=== PATIENT | female | born 1985 | race Caucasian/White ===

== ENCOUNTER 2022-12-29 12:08 | Emergency (ER) | payer BC, SELFPAY ==
[2022-12-29 12:14] VITALS: BP 158/108; PULSE 66; RESP 16; TEMP 36.7; O2SAT 97; BMI 33.1
[2022-12-29 13:11] LABS: Basophils Absolute Auto 0.02 K/uL (0.00-0.30); Basophils Percent Auto 0.3 % (0.0-3.0); Eosinophils Absolute Auto 0.29 K/uL (0.00-0.50); Eosinophils Percent Auto 4.6 % (0.0-7.0); Hematocrit 44.4 % (33.0-51.0); Hemoglobin* 14.9 gm/dL (12.0-16.0); Immature Granulocytes Abs Auto 0.01 K/uL (0.00-0.30); Immature Granulocytes Pct Auto 0.2 %; Lymphocytes Absolute Auto 2.54 K/uL (0.90-2.90); Lymphocytes Percent Auto 39.9 % (20-44); Mean Corpuscular HGB Conc 34 gm/dL (32-36); Mean Corpuscular Hemoglobin 29 pg (26-34); Mean Corpuscular Volume 85 fL (80-100); Monocytes Percent Auto 6.4 % (0.0-11.0); Neutrophils Absolute Auto 3.09 K/uL (1.7-7.0); Neutrophils Percent Auto 48.6 % (42.0-72.0); Platelet Count* 356 K/uL (140-440); RDW Coefficient of Variation % 12.5 % (11.5-15.5); White Blood Count* 6.36 K/uL (4.50-11.00)
[2022-12-29 13:12] LABS: Slide Review Reflex No
--- NOTE | 2022-12-29 13:12 | ED.GENADULT ---
HPI - General Adult General Date Seen: 12/29/22 Chief complaint: Hypertension Stated complaint: high blood pressure Time Seen by Provider: 12/29/22 12:09 Source: patient Mode of arrival: ambulatory Limitations: no limitations History of Present Illness HPI narrative: Patient is a 37-year-old woman who is here because of elevated blood pressures. She says that she had had history of high blood pressure, had been on metoprolol and hydrochlorothiazide. However, she has been losing weight and made some lifestyle changes and as a result blood pressures had normalized and she was able to go off blood pressure medicines. She says that she had noted however for the past week or so her blood pressures have been higher, it sounds like she has been checking them fairly frequently, she has been feeling worried about it, and as a result has had some anxiety about her blood pressures. She does have a history of chronic migraines she says for the past 3 years since starting a job that involves a lot of sitting and screen time. She had previously been seeing a chiropractor weekly for these, but more recently had stop going to the chiropractor, and as a result has been getting more headaches. She has had headache today, and some spots in her vision, these are typical symptoms for her, but because her blood pressure was higher today than she has seen it in the past she became concerned that maybe her blood pressure was a cause of her headache and decided that she should come in. She does have hydrochlorothiazide left at home and had talked to her primary doctor about possibly restarting that, but it sounds as if her doctor head thought that probably was not necessary yet. She has not had other symptoms such as chest pain or difficulty breathing. She has not had nausea or vomiting. She denies significant caffeine or other stimulant use. She does say her sleep has been somewhat altered. She does not smoke, denies significant alcohol use, denies other drug use. Here today with her significant other. Related Data Home Medications Medication Instructions Recorded Confirmed No Known Home Medications 12/29/22 12/29/22 Allergies Allergy/AdvReac Type Severity Reaction Status Date / Time No Known Drug Allergies Allergy Verified 12/29/22 12:14 Review of Systems Status of ROS: Reports: 10 or more systems reviewed and unremarkable except as noted in History and below PFSH PFSH Social History Smoking Status: Never smoker Second hand tobacco smoke exposure: No How often do you have a drink containing alcohol: never How often do you have six or more drinks on one occasion: Never AUDIT-C Alcohol total score: 0 Non-prescribed substance use: other Non-prescribed substance use details: Gummis in the evening with THC to help wtih anxiety, does not vape THC anymore service: No Exam Narrative: Exam Narrative: Vital signs as noted above. In general, an alert, well-appearing patient. Head: Normocephalic, atraumatic. Eyes: Pupils are equal reactive. Extraocular movements are full. Conjunctivae are normal. ENT: Mucous membranes are moist. Throat is normal. Neck: Supple without lymphadenopathy. Heart: Regular rate and rhythm. No murmur or rub. Lungs: Clear bilaterally. No increased work of breathing, crackles or wheezes. Abdomen: Soft and nontender. No organomegaly. Extremities: Well perfused. No edema. No calf tenderness. Pulses intact. Neurologic: Patient is alert and oriented to person and place. Speech is fluent. Face is symmetric. Moves all extremities equally. Affect: Normal. Skin: Warm and dry. Well perfused. Const: Vital Signs, click to edit/add: Vital Signs - 24 hr 12/29/22 12:14 12/29/22 13:37 Temperature 98.0 F Pulse Rate [Left P ulse Oximeter] 66 74 Respiratory Rate 16 16 Blood Pressure [Ri ght Upper Arm] 158/108 H 164/109 H Pulse Oximetry 97 96 Oxygen Delivery Me thod Room Air Room Air Documenting provider has reviewed patient's vital signs: yes Course Course Hospital Course: In general she is well appearing, blood pressure here is 158/108. I do think that she is probably checking her blood pressure more frequently than needed, and that concern over her blood pressure is probably not helping her blood pressure. It is unclear why her blood pressures are little more elevated than they have been this past week. I am going to check some basic labs make sure renal function, electrolytes etcetera are normal. I think that her headache seems to be typical for her and does not have any worrisome features necessitating imaging today. There is nothing on exam to suggest neurologic deficits, no evidence of stroke, nothing on history to suggest subarachnoid hemorrhage or other intracranial bleeding. She denies significant dietary changes, increased salt etcetera. No obvious stimulant use. For now, I think it is probably reasonable for her to check her blood pressures once a day in the morning for the next week or so and then follow up with her primary doctor to discuss management at that time. If she is continuing to run high, she may need to go back on blood pressure medications. For today, I do not think it is necessary to restart blood pressure medications given that she has normalized more recently, continues to lose weight and follow lifestyle changes that resulted in cessation of the need for blood pressure medications. Labs are normal here, renal function is good with a creatinine of 0.9, electrolytes normal. TSH is 3.35, hemoglobin is 14.9. Her headache persisted while she was here but she declined any medications for this. She was eager to be discharged because she wants to go to the chiropractor. She says that she has a lot of spasm in her neck muscles in the back, and she feels that going to the chiropractor is what she most needs right now. She continues to feel that she would prefer to wait on restarting blood pressure medications for now, she will check her blood pressure in the mornings for the next week or so, check in with her primary care doctor after that and decide from there. Discussed that if she has any changes or increase in severity for headache, new neurologic changes, significantly elevated blood pressures greater than 200, or other worrisome symptoms, return to the emergency department or discuss with Primary Care sooner. Vital Signs Vital signs: Initial Vital Signs Temperature 98.0 F 12/29/22 12:14 Temperature Source Temporal Artery Scan 12/29/22 12:14 Pulse Rate 66 12/29/22 12:14 Pulse Rhythm 12/29/22 12:14 Respiratory Rate 16 12/29/22 12:14 Blood Pressure 158/108 H 12/29/22 12:14 Blood Pressure Mean 124 12/29/22 12:14 Blood Pressure Position Sitting 12/29/22 12:14 Pulse Oximetry 97 12/29/22 12:14 Oxygen Delivery Method 12/29/22 12:14 Vital Signs Temperature 98.0 F 12/29/22 12:14 Pulse Rate 66 12/29/22 12:14 Respiratory Rate 16 12/29/22 12:14 Blood Pressure 158/108 H 12/29/22 12:14 Pulse Oximetry 97 12/29/22 12:14 Oxygen Delivery Method 12/29/22 12:14 Temperature 98.0 F 12/29/22 12:14 Pulse Rate 74 12/29/22 13:37 Respiratory Rate 16 12/29/22 13:37 Blood Pressure 164/109 H 12/29/22 13:37 Pulse Oximetry 96 12/29/22 13:37 Oxygen Delivery Method 12/29/22 13:37 Medical Decision Making Lab Data Labs: Lab Results 12/29/22 12/29/22 12/29/22 Range/Units 13:00 13:00 13:00 WBC 6.36 (4.50-11.00) K/uL RBC 5.20 (4.00-5.20) m/uL Hgb 14.9 (12.0-16.0) gm/dL Hct 44.4 (33.0-51.0) % MCV 85 (80-100) fL MCH 29 (26-34) pg MCHC 34 (32-36) gm/dL RDW Coeff of Gavin 12.5 (11.5-15.5) % Plt Count 356 (140-440) K/uL Neut % (Auto) 48.6 (42.0-72.0) % Lymph % (Auto) 39.9 (20-44) % Hardeman % (Auto) 6.4 (0.0-11.0) % Eos % (Auto) 4.6 (0.0-7.0) % Baso % (Auto) 0.3 (0.0-3.0) % Neut # (Auto) 3.09 (1.7-7.0) K/uL Lymph # (Auto) 2.54 (0.90-2.90) K/uL Hardeman # (Auto) 0.40 (0.00-0.90) K/UL Eos # (Auto) 0.29 (0.00-0.50) K/uL Baso # (Auto) 0.02 (0.00-0.30) K/uL Sodium 141 (135-149) mmol/L Potassium 3.8 (3.6-5.1) mmol/L Chloride 108 (96-114) mmol/L Carbon Dioxide 23 (20-32) mmol/L BUN 12 (5-24) mg/dL Creatinine 0.9 (0.5-1.5) mg/dL Estimated Creat Clear 67.03 Estimated GFR 84 ml/min Glucose 86 (60-115) mg/dL Calcium 8.9 (8.4-10.6) mg/dL TSH 3.350 (0.270-4.200) uIU/mL Discharge Plan Discharge Prescriptions: No Action No Known Home Medications Follow Up/Referrals: Provider,Not a Local [Primary Care Provider] -
[2022-12-29 13:20] LABS: Chloride* 108 mmol/L (96-114); Potassium* 3.8 mmol/L (3.6-5.1); Sodium* 141 mmol/L (135-149)
[2022-12-29 13:23] LABS: Blood Urea Nitrogen* 12 mg/dL (5-24); Carbon Dioxide* 23 mmol/L (20-32); Creatinine* 0.9 mg/dL (0.5-1.5); Est. Creatinine Clearance* 67.03; Estimated Glomerular Filt Rate 84 ml/min; Glucose* 86 mg/dL (60-115)
[2022-12-29 13:24] LABS: Calcium* 8.9 mg/dL (8.4-10.6)
[2022-12-29 13:37] VITALS: BP 164/109; PULSE 74; RESP 16; O2SAT 96
--- NOTE | 2022-12-29 14:27 | ED.NURSE ---
Patient was verbally discharged by .
== END 2022-12-29 14:29 | disposition home or self-care (01) ==
PROVIDERS: Emergency Provider Emergency Medicine
DX: I10 Essential (primary) hypertension (principal)
CPT/HCPCS: 36415; 80048; 84443; 85025; 99283; 99284